=== PATIENT | female | born 2000 | race Caucasian/White ===

== ENCOUNTER 2018-01-14 23:39 | Emergency (ER) | payer BC, OTHER ==
[2018-01-14] MEDS ORDERED: DEXAMETHASONE 4 MG TAB PO ONE (23:49)
[2018-01-14] MEDS ORDERED: ACETAMINOPHEN 500 MG TAB PO ONE (23:49)
[2018-01-14] MEDS ORDERED: BICILLIN C-R 1200000 UNIT/2 ML SYRINGE IM ONE (23:53)
--- NOTE | 2018-01-14 23:54 | EDPHY ---
H & P Stated Complaint: dx with strep throat today, did not fill rx Time Seen by Provider: 01/14/18 23:48 HPI/ROS: HPI: This is a 17-year-old female who presents with Chief Complaint: dx with strep throat today, did not fill rx Location: Throat Quality: Sore Duration: 2 days Signs and Symptoms: + fever, no nausea, no vomiting, no diarrhea, no urinary symptoms, no chest pain, no shortness of breath, no wheezing, no cough, no sore throat, no neck stiffness, no joint pain, + swollen glands, no ear pain, no rash Timing: Acute, constant Severity: Moderate Context: Patient presents with complaints of 2 day history of sore throat accompanied by fever, fatigue, body aches, white exudate on tonsils. Patient reports that she was treated 3 weeks ago for strep throat with cefdinir. States compliance with 10 day antibiotic course. Her boyfriend did not get treated. Then again she had 2 day history of sore throat, white exudate and swollen glands. Went to the [facility] today and diagnosed with strep throat. Given prescription for cefdinir again. Patient did not fill it. Instead she went home and slept. Last dose of antipyretics was this afternoon. LMP 1-7 days ago. Modifying Factors: Advil this afternoon Comment: ROS: see HPI Constitutional: + fever, no chills, no weight loss Eyes: No blurred vision Respiratory: No shortness of breath, no cough Cardiovascular: No chest pain, no palpitations Gastrointestinal: No nausea, no vomiting, no diarrhea, no hematemesis, no blood in stool Genitourinary: No dysuria, no blood in urine Extremities: No myalgias, no edema Neurologic: No weakness, no numbness Skin: No rashes, no petechiae Hematologic: No bruising, no bleeding MEDICAL/SURGICAL/SOCIAL HISTORY: Medical history: Generally healthy. Does not take any regular medications. Surgical history: Denies Social history: Family history noncontributory. CONSTITUTIONAL: Polite and cooperative, nontoxic-appearing teenage white female , awake and alert, no obvious distress HEENT: Atraumatic and normocephalic, PERRL, EOMI. Nares patent; no rhinorrhea; no nasal mucosal edema. Tympanic membranes clear. Oropharynx clear, tonsils 1 + with white exudate; uvula midline; no postpharyngeal edema. moist pink mucosa. Airway patent. + spotty cervical lymphadenopathy. No meningismus. Cardiovascular: Normal S1/S2, tachycardia, regular rhythm, without murmur rub or gallop. PULMONARY/CHEST: Symmetrical and nontender. Clear to auscultation bilaterally. Good air movement. No accessory muscle usage. ABDOMEN: Soft, nondistended, nontender, no rebound, no guarding, no peritoneal signs, no masses or organomegaly. No CVAT. EXTREMITIES: 2/2 pulses, strength 5/5, no deformities, no clubbing, no cyanosis or edema. NEUROLOGICAL: no focal neuro deficits. GCS 15. SKIN: Warm and dry, no erythema. no rash. Good capillary refill. Source: Patient Exam Limitations: No limitations - Personal History LMP (Females 10-55): 1-7 Days Ago Current Tetanus/Diphtheria Vaccine: Yes Current Tetanus Diphtheria and Acellular Pertussis (TDAP): Yes - Medical/Surgical History Hx Asthma: No Hx Chronic Respiratory Disease: No Hx Diabetes: No Hx Cardiac Disease: No Hx Renal Disease: No Hx Cirrhosis: No Hx Alcoholism: No Hx HIV/AIDS: No Hx Splenectomy or Spleen Trauma: No - Social History Smoking Status: Never smoked Constitutional: Initial Vital Signs Temperature (C) 39.0 C H 01/14/18 23:43 Heart Rate 149 H 01/14/18 23:43 Respiratory Rate 18 01/14/18 23:43 Blood Pressure 104/70 01/14/18 23:43 O2 Sat (%) 94 01/14/18 23:43 O2 Delivery Mode Room Air Allergies/Adverse Reactions: No Known Allergies Allergy (Unverified 01/14/18 23:46) Home Medications: Medication Instructions Recorded Control Pills 01/14/18 Medical Decision Making ED Course/Re-evaluation: Strep test positive earlier today-no need to repeat IM Bicillin, p.o. Decadron, p.o. Tylenol 1000 mg given No signs of tonsillar abscess/Suhas's angina/airway compromise/dehydration/ meningitis Advised supportive care. Vitals improved at discharge. This patient was seen under the supervision of my secondary supervising physician. I evaluated care for this patient independently. Differential Diagnosis: Differential diagnosis includes but is not limited to strep pharyngitis, infectious mononucleosis, viral pharyngitis, upper respiratory infection. Departure - Departure Disposition: Home, Routine, Self-Care Clinical Impression: Strep pharyngitis Condition: Good Instructions: Strep Throat (ED) Additional Instructions: Consume a minimum of 8-10 glasses of water or electrolyte fluid replacement drinks that include Gatorade, Powerade, Pedialyte. If unable to swallow liquids, eat popsicles. Eat a bland diet for the next 48 hours and then slowly advance as tolerated. Take Tylenol 650 mg every 4 hours and/or Ibuprofen 800 mg every 8 hours with food as needed for pain/fever. Perform Salt water gargles and use [id number] throat lozenges as needed for sore throat. Return to the ER immediately if you experience fevers/chills, shortness of breath, abdominal pain, inability to tolerate oral intake, or any other symptoms that concern you. Referrals: [facility],. [Clinic] - 5-7 days, if not improved Stand Alone Forms: School Excuse
[2018-01-15 00:26] VITALS: BP 120/73
== END 2018-01-15 00:26 | disposition home or self-care (01) ==
DX: J02.0 Streptococcal pharyngitis (principal)
CPT/HCPCS: J0558